=== PATIENT | male | born 1995 | race African-American/Black ===

== ENCOUNTER 2025-05-13 17:28 | Emergency (ER) | payer OTHER, SELFPAY ==
[2025-05-13 17:30] VITALS: BP 162/98; PULSE 96; TEMP 37.3; O2SAT 100; BMI 30.4
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
== END 2025-05-13 18:42 | disposition home or self-care (01) ==
PROVIDERS: Emergency Provider Emergency Medicine
DX: S46.812A Strain of other muscles, fascia and tendons at shoulder and upper arm level, left arm, initial encounter (principal); S39.012A Strain of muscle, fascia and tendon of lower back, initial encounter; V49.49XA Driver injured in collision with other motor vehicles in traffic accident, initial encounter
CPT/HCPCS: 72100; 73030; 73060; 99284